=== PATIENT | female | born 1935 | race Caucasian/White ===

== ENCOUNTER 2016-12-13 12:23 | Observation (INO) | payer MEDICARE, OTHER ==
[2016-12-18] MEDS ORDERED: Ondansetron ODT 4 MG TAB PO PRN (14:42)
[2016-12-18] MEDS ORDERED: Acetaminophen 325 MG TAB PO PRN (14:42)
[2016-12-18] MEDS ORDERED: diphenhydrAMINE HCl 25 MG CAP PO PRN (14:43)
[2016-12-18 14:47] VITALS: BMI 24.4
[2016-12-18 15:08] LABS: #Basophils 0.1 thou/uL (0.0-0.2); #Eosinphils 0.1 thou/uL (0.0-0.7); #Lymphocytes 1.9 thou/uL (1.20-3.40); #Monocytes 0.9 thou/uL (0.11-0.59); #Neutrophils 6.3 thou/uL (1.40-6.50); %Basophils 0.6 % (0.0-1.0); %Eosinophils 0.7 % (0.0-10.0); %Lymphocytes 20.2 % (21.0-51.0); %Monocytes 9.9 % (0.0-10.0); Hematocrit 39.7 % (36.0-47.0); Mean Platelet Volume 7.5 fL (7.4-10.4); Red Blood Cell (RBC) Count 4.08 mill/uL (4.20-5.40); White Blood Cell (WBC) Count 9.1 thou/uL (4.8-10.8)
[2016-12-18 15:28] LABS: ALT (SGPT) 11 U/L (8-55); AST (SGOT) 16 U/L (5-34); Alkaline Phosphatase 80 U/L (40-150); Anion Gap 12 mmol/L (10-20); BUN (Urea Nitrogen) 12 mg/dL (9.8-20.1); Bilirubin, Total 0.3 mg/dL (0.2-1.2); Calc. Creatinine Clearance 65 mL/min (70-130); Calcium 8.9 mg/dL (7.8-10.44); Carbon Dioxide 22 mmol/L (23-31); Chloride 107 mmol/L (98-107); Estimated GFR-MDRD 80; Globulin 3.2 g/dL (2.4-3.5)
[2016-12-18] MEDS ORDERED: GoLYTELY 4,000 ml Bottle PO SCH (16:00)
[2016-12-18] MEDS ORDERED: NAMZARIC PO SCH (21:00)
[2016-12-18] MEDS: AcetaZOLAMIDE 250 MG TAB PO SCH (21:26)
[2016-12-19] MEDS ORDERED: GoLYTELY 4,000 ml Bottle PO SCH (05:00)
[2016-12-19] MEDS ORDERED: Levothyroxine Sodium 50 MCG TAB PO SCH (06:00)
[2016-12-19] MEDS: AcetaZOLAMIDE 250 MG TAB PO SCH (08:07)
[2016-12-19] MEDS ORDERED: Losartan Potassium 25 MG TAB PO SCH (09:00)
[2016-12-19] MEDS ORDERED: Loratadine 10 MG TAB PO SCH (09:00)
[2016-12-19] MEDS ORDERED: Fleet Enema 133 ML BOT FS SCH (10:30)
[2016-12-19] MEDS ORDERED: Propofol 200 MG/20 ML VIAL ONE (13:28)
[2016-12-19] MEDS ORDERED: Lidocaine 1% PF 5 ML VIAL ONE (13:28)
[2016-12-19 13:33] VITALS: TEMP 97.7
[2016-12-19] MEDS ORDERED: Promethazine HCl 25 MG/ML VIAL SLOW IVP PRN (14:09)
[2016-12-19] MEDS ORDERED: Promethazine HCl 25 MG/ML VIAL IM PRN (14:09)
[2016-12-19] MEDS ORDERED: Ondansetron HCl/PF 4 MG/2 ML Vial IVP PRN (14:09)
--- NOTE | 2016-12-19 15:26 | OP ---
DATE OF PROCEDURE: 12/19/2016 TITLE OF PROCEDURE: Colonoscopy with injection therapy and biopsy. PREOPERATIVE DIAGNOSES: 1. Chronic constipation. 2. Rectal bleeding 3. Anal mass noted on recent physical exam. POSTOPERATIVE DIAGNOSES: 1. Exam to cecum; adequate bowel preparation. 2. Severe of diffuse melanosis coli which somewhat limits visualization of mucosal detail. 3. Flat 1.6 cm polyp in the ascending colon, biopsied after unsuccessful attempt to remove. 4. Small internal hemorrhoids. 5. No evidence of rectal mass. 6. 2-inch firm, friable mass at the vaginal introitus extending posterior to the anal verge, biopsi ed. PROCEDURE IN DETAIL: Written informed consent was obtained. The patient was brought to the endosco py suite. Total intravenous anesthesia was administered by Dr. Antonio and associates. The patient w as placed in the left lateral decubitus position. A digital rectal exam was performed, which reveal ed a 2 cm firm exophytic friable mass at the vaginal introitus extending posteriorly to the anus. A t the conclusion of the colonoscopy, small tissue biopsies of the mass were obtained for histology. A Pentax video colonoscope was inserted through the anal canal and advanced under direct visualizat ion to the cecum. Position in the cecum was verified by identification of the ileocecal valve and t hrough transillumination. The quality of the bowel preparation was good. However, due to the endos copic findings, visualization of the mucosa for small details was somewhat limited. Endoscopic find ings showed severe diffuse melanosis coli. In the midascending colon, 1.6 cm flat polyp over a fold was identified. The polyp was elevated with submucosal injection of saline, but could still not be successfully captured and removed by snare. Hence, the attempted polypectomy was aborted and biops ies were obtained for histology. In the rectum, a retroflexed view demonstrated small internal hemo rrhoids. However, no rectal mass was seen. The anal canal appeared intact. The colon was decompre ssed as the colonoscope was removed from the patient. There were no immediate complications. She w as transferred to the recovery room for post-procedure monitoring. RECOMMENDATIONS: 1. Await pathology results. 2. Ask the patient's daughter to call me in 1 week for pathology results. 3. Continue MiraLax. 4. Obtain gynecology consultation in the next 1-2 weeks. 5. Follow up with me in [facility] in 2-3 weeks. 6. Okay to discharge home from [facility] once the patient is awake, alert, and her vitals are st able.
[2016-12-19 17:02] VITALS: BP 106/65
== END 2016-12-19 18:10 | disposition home or self-care (01) ==
LOC: T4-A 12-18 14:04 → EDSTATUS 12-19 14:03
PROVIDERS: ADMIT Internal Medicine; ATTEND Internal Medicine
PROC: 0DBK8ZX Excision of Ascending Colon, Via Natural or Artificial Opening Endoscopic, Diagnostic (ICD-10-PCS; principal; 2016-12-18)
PROC: 0DBP8ZX Excision of Rectum, Via Natural or Artificial Opening Endoscopic, Diagnostic (ICD-10-PCS; 2016-12-18)
DX: C20 Malignant neoplasm of rectum (principal); D12.2 Benign neoplasm of ascending colon; K63.89 Other specified diseases of intestine; K64.8 Other hemorrhoids; K21.9 Gastro-esophageal reflux disease without esophagitis; I10 Essential (primary) hypertension; I67.1 Cerebral aneurysm, nonruptured; F41.9 Anxiety disorder, unspecified; M19.90 Unspecified osteoarthritis, unspecified site; Z79.899 Other long term (current) drug therapy; Z90.710 Acquired absence of both cervix and uterus; Z98.2 Presence of cerebrospinal fluid drainage device; Z85.41 Personal history of malignant neoplasm of cervix uteri
CPT/HCPCS: 45380; 80053; 82378; 85025; 88305; 88341; 88342; G0378; 36415; 88304; A4216; J2001; J2704

== ENCOUNTER 2017-01-01 16:06 | Outpatient (CLI) | payer MEDICARE, OTHER ==
--- NOTE | 2017-01-01 16:42 | ULT ---
VENOUS DOPPLER ULTRASOUND OF THE RIGHT LOWER EXTREMITY: HISTORY: Pain and edema in the right lower extremity. TECHNIQUE: Buchanan scale ultrasound with color flow and spectral Doppler imaging of the deep venous system of the right lower extremity was performed. FINDINGS: There is good flow, compression, and augmentation noted in the right common femoral, femoral, deep f emoral, popliteal, posterior tibial, and greater saphenous veins. There are hyperechoic solid-appearing masses with a small amount of flow in the right groin without connection to the vascular structures measuring 4.7 x 2.3 x 3.1 cm and 1.6 x 1.3 x 1.6 cm respective ly. These are suspicious for enlarged lymph nodes. IMPRESSION: 1. No evidence of deep vein thrombosis in the right lower extremity. 2. Masses in the right groin are likely enlarged lymph nodes. Findings are discussed over the telephone with Dr. Alyssa Mckeon (covering for Dr. Lindsay) at 4:33 p.m. CODE CR POS: [facility]
== END 2017-01-01 16:07 | disposition home or self-care (01) ==
LOC: ULT 16:06
PROVIDERS: ATTEND Internal Medicine Hematology & Oncology
DX: I82.90 Acute embolism and thrombosis of unspecified vein (principal); M79.604 Pain in right leg; R60.0 Localized edema; R19.09 Other intra-abdominal and pelvic swelling, mass and lump

== ENCOUNTER 2017-01-07 14:55 | Outpatient (CLI) | payer MEDICARE, OTHER ==
--- NOTE | 2017-01-07 20:40 | PET ---
NUCLEAR MEDICINE FDG PET CT: (Positron Emission Tomography) DATE: 01/07/17 HISTORY: 81-year-old female with anal cancer. Initial staging. COMPARISON: None. TECHNIQUE: IV injection F-18 Fluorodeoxyglucose (FDG) dose: 9.8 mCi Attenuation-correction CT performed from skull base to proximal thighs. FINDINGS: SUV (standard uptake value) numbers given are maximum SUV's: There is a focus of increased FDG localization in the anus, at midline and to the left of midline, w ith SUV of 11.3, corresponding to the anal carcinoma mentioned in the history. (A few centimeters superior to this, there is a focus of increased uptake in the rectum, with SUV of 5.8. This may be of similar etiology of the diffuse and discontiguously increased uptake throughout much of the rest of the colon, including sigmoid colon and descending colon, and may not necessaril y represent a 2nd neoplastic focus. Recommend correlateion with results of sigmoidoscopy or colonosc opy.) There is a 4.5 x 2.5 cm medial right metastatic inguinal enlarged lymph node with SUV of 10.3. Slightly anterior and superior to that, there is another 1.5 x 1.3 cm metastatic right inguinal lymp h node with SUV of 3.2. There is a 3 x 2 cm enlarged right obturator internis lymph node with SUV of 12.4. No common iliac or retroperitoneal hypermetabolic lymph nodes. Multiple gallstones. Large cyst in th e left lobe of the liver. Located at the hepatic hilum (anterior to the caudate lobe of the liver and posterior to the falcifo rm ligament), there is a 1 x 1.7 cm mildly enlarged lymph node with SUV of 10.9. No liver metastasis. Moderate-large hiatal hernia with approximately 50% of stomach superior to diap hragm. No hypermetabolic activity in the thorax and no suspicious hypermetabolic activity in the nec k. IMPRESSION: 1. Anal cancer. 2. Metastatic pelvic lymph nodes: 2 right inguinal nodes and 1 right obturator internis node. 3. Small but very hypermetabolic gary hepatis lymph node at the hepatic hilum, suspicious for virginia gnant involvement. 4. Cholelithiasis. 5. Moderate - large hiatal hernia. 6. Moderately large left lobe benign hepatic cyst. MISA Felix POS: [facility]
== END 2017-01-07 14:56 | disposition home or self-care (01) ==
LOC: PET 14:55
PROVIDERS: ATTEND Internal Medicine Hematology & Oncology
DX: C21.1 Malignant neoplasm of anal canal (principal); K80.20 Calculus of gallbladder without cholecystitis without obstruction; K44.9 Diaphragmatic hernia without obstruction or gangrene
CPT/HCPCS: 78815; A9552

== ENCOUNTER 2017-02-04 15:05 | Day surgery (SDC) | payer MEDICARE, OTHER ==
[2017-01-29 17:29] VITALS: BMI 25.0
[2017-02-04] MEDS ORDERED: Ketorolac Tromethamine 30 MG/ML VIAL ONE (15:29)
[2017-02-04] MEDS ORDERED: CEFAZOLIN/Water 2 GM/20 ML SYRINGE ONE (15:29)
--- NOTE | 2017-02-04 16:35 | RAD ---
ONE VIEW CHEST: History: Status post Mediport placement. Comparison: None. FINDINGS: Portable upright chest demonstrates a portion of a left sided PULVERIZER OPERATOR shunt catheter. No Mediport cathete r. Normal cardiac silhouette. The pulmonary vessels and hilum are normal. No consolidation or mass. No pneumothorax or osseous abnormality. IMPRESSION: 1. No acute cardiopulmonary process. 2. No evidence of Mediport catheter. POS: [facility]
[2017-02-04] MEDS ORDERED: Fentanyl 100 MCG/2 ML VIAL ONE (17:57)
[2017-02-04] MEDS ORDERED: Lidocaine 1% (PF) 30 ML VIAL ONE (18:02)
[2017-02-04] MEDS ORDERED: Bupivacaine/Epinephrine 0.25% 30 ML VIAL ONE (18:02)
[2017-02-04] MEDS ORDERED: ePHEDrine/0.9% NaCl/PF SYRINGE 50 mg/10 ml ONE (18:32)
[2017-02-04] MEDS ORDERED: Lidocaine 1% PF 5 ML VIAL ONE (18:32)
[2017-02-04] MEDS ORDERED: Propofol 200 MG/20 ML VIAL ONE (18:32)
--- NOTE | 2017-02-04 20:40 | RAD ---
CHEST ONE VIEW 02/04/17 HISTORY: Mediport placement. COMPARISON: Earlier exam on the same date. FINDINGS: The cardiac silhouette is magnified by projection. The pulmonary vasculature is now engorged. Medias tinum remains midline. Tip of a right sided Mediport projects over the superior vena cava. There is no evidence of pneumothorax. Radiopaque tubing overlying the left chest and abdomen is similar in ap pearance to the previous study. IMPRESSION: Right sided Mediport is in good radiographic position. POS: [facility]
--- NOTE | 2017-02-04 23:34 | OP ---
DATE OF PROCEDURE: 02/04/2017 PREOPERATIVE DIAGNOSIS: Vulvar squamous cell cancer. POSTOPERATIVE DIAGNOSIS: Vulvar squamous cell cancer. OPERATION PERFORMED: Placement of right subclavian MediPort. SURGEON: [place] Gaitan M.D. ANESTHESIA: Total intravenous anesthesia with local using 0.25% Marcaine with epinephrine. INDICATIONS: The patient is an 81-year-old white female. 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 Chemotherapy and radiation has been recommended. She presents for port anais cement for chemotherapy administration. DESCRIPTION OF OPERATION: Informed consent was obtained. The patient was taken to the operating ro om where total intravenous anesthesia was obtained with the patient in supine position. Right upper chest was prepped with ChloraPrep and draped in sterile fashion. Local anesthetic was infiltrated and a large gauge needle was passed under the clavicle and subclavian vein on the initial pass. Adonis dewire was passed into the superior vena cava using fluoroscopic guidance. Additional local anesthe tic was infiltrated and transverse incision was created based on needle insertion site. Subcutaneou s pocket was dissected. Introducer dilator was passed over the guidewire. Guidewire was removed an d catheter was passed through the introducer, which was then removed in the usual peel-apart fashion . Catheter tip was positioned at the atrial caval junction. The catheter was trimmed to appropriat e length and secured to the locking hub of the MediPort. The port was secured to the pectoral fasci a using 2 interrupted sutures of 3-0 Prolene. The wound was closed in layers with 3-0 and 4-0 Monoc ryl. Dermabond was placed externally. The port was accessed easily. It aspirated blood and was fl ushed with heparinized saline. There were no complications. The patient tolerated the procedure we ll. Postprocedure chest x-ray documents good position of the port and catheter. She was taken to r ecovery room in stable condition.
== END 2017-02-04 19:44 | disposition home or self-care (01) ==
LOC: SDC 15:05
PROVIDERS: ATTEND Specialist
PROC: 0JH63WZ Insertion of Totally Implantable Vascular Access Device into Chest Subcutaneous Tissue and Fascia, Percutaneous Approach (ICD-10-PCS; principal; 2017-02-04)
DX: C51.9 Malignant neoplasm of vulva, unspecified (principal); C21.0 Malignant neoplasm of anus, unspecified; I10 Essential (primary) hypertension; E03.9 Hypothyroidism, unspecified; J30.2 Other seasonal allergic rhinitis; Z79.51 Long term (current) use of inhaled steroids; Z79.899 Other long term (current) drug therapy; Z90.710 Acquired absence of both cervix and uterus; Z98.890 Other specified postprocedural states; Z98.818 Other dental procedure status; Z85.41 Personal history of malignant neoplasm of cervix uteri
CPT/HCPCS: 36561; 71010; 77386; 80053; 82248; 83615; 83735; 84100; 84550; C1788; 36415; J0131; J1642; J1885; J2001; J2704; J3010

== ENCOUNTER 2017-02-06 15:48 | Outpatient (CLI) | payer MEDICARE, OTHER ==
--- NOTE | 2017-02-06 16:24 | ULT ---
RIGHT LOWER EXTREMITY VENOUS DOPPLER ULTRASOUND 02/06/17 COMPARISON: 01/01/17 HISTORY: Evaluate for deep venous thrombosis of the right lower extremity, pain and swelling/edema. TECHNIQUE: Multiplanar lopez scale sonographic imaging of the venous structures of the right lower extremity obta ined with color flow and spectral analysis. FINDINGS: The right common femoral vein, greater saphenous vein, profunda femoral vein, femoral vein, popliteal vein, and posterior tibial vein are patent. there is normal blood flow, augmentation and compression within the deep venous system of the right lower extremity with no evidence for DVT. As seen on the prior examination, there is a lobulated soft tissue hypoechoic mass in the inguinal re gion on the right measuring up to 3.2 cm, consistent with the patient's known right inguinal lymphade nopathy. IMPRESSION: 1. No sonographic evidence of deep venous thrombosis of the right lower extremity. 2. Right inguinal lymphadenopathy. POS: [facility]
== END 2017-02-06 15:49 | disposition home or self-care (01) ==
LOC: ULT 15:48
PROVIDERS: ATTEND Radiology Radiation Oncology
DX: R60.0 Localized edema (principal); R59.0 Localized enlarged lymph nodes

== ENCOUNTER 2017-02-26 17:16 | Inpatient (IN) | payer MEDICARE, OTHER ==
[2017-02-26] MEDS ORDERED: Ondansetron HCl/PF 4 MG/2 ML Vial IVP PRN (18:17)
[2017-02-26 18:28] VITALS: BMI 25.0
[2017-02-26] MEDS ORDERED: Sodium Chloride 0.9% 1,000 ML IV SCH ×2 (18:30)
[2017-02-26 19:19] LABS: ALT (SGPT) 52 U/L (8-55); AST (SGOT) 52 U/L (5-34); Alkaline Phosphatase 88 U/L (40-150); Anion Gap 16 mmol/L (10-20); BUN (Urea Nitrogen) 17 mg/dL (9.8-20.1); Bilirubin, Total 0.4 mg/dL (0.2-1.2); Calc. Creatinine Clearance 33 mL/min (70-130); Calcium 6.7 mg/dL (7.8-10.44); Carbon Dioxide 23 mmol/L (23-31); Chloride 92 mmol/L (98-107); Estimated GFR-MDRD 39; Globulin 2.8 g/dL (2.4-3.5); Magnesium 1.1 mg/dL (1.6-2.6)
[2017-02-26] MEDS ORDERED: Magnesium 2 GM/NS 0.9% 50 ML 2 GM in Premix Bag 1 BAG IVPB SCH (20:30)
[2017-02-26] MEDS: NS 0.9% w/ 20 MEQ KCL 1,000 ML IV SCH (22:27)
[2017-02-26] MEDS: Famotidine/PF 20 mg/2ml Vial SLOW IVP SCH (22:28)
[2017-02-26 22:45] LABS: Bilirubin Negative (Negative); Blood, Urine Moderate (Negative); Glucose, Urine (Dipstick) Negative (Negative); Ketone, Urine Trace mg/dL (Negative); Nitrite Negative (Negative); Protein, Urine (Dipstick) 30 mg/dL (Neg-Trace); Urobilinogen 0.2 mg/dL (0.2-1.0)
[2017-02-26 22:47] LABS: Bacteria/HPF 4+ HPF (None Seen); Hyaline Casts/LPF 0-3 HYALINE CAST LPF (0-3 Hyaline); Squamous Epithelial 0-3 HPF (0-3)
--- NOTE | 2017-02-27 05:51 | HP ---
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 The patient has had pelvic dis comfort, bleeding, and vaginal pain over these last several years off and on. She recently moved [facility]. She then presented to Dr. Newsome who discovered a large vaginal mass and suspected canc er vulvar versus anal. A biopsy was obtained, which did reveal a squamous cell carcinoma. She is pr esently followed by Dr. Flores and Dr. Lindsay. The patient has received approximately 4 weeks of rad iation treatment and approximately 3 weeks of chemo. During this treatment, the patient gets dehydra rin at times and had required hydration. But with each episode, her dehydration, according to the d miguel, appears to be getting worse and worse. Finally, over the past 24 hours, the patient has had marked diarrhea and she has had a minimal intake. The family is very concerned about her being quit e dehydrated. They have elected to hold chemo and radiation at this time. Her last chemo was one we ek ago, Friday. The dose yesterday was held. They are in the process of evaluating the future plan s. In the meantime, the patient is not really complaining of any pain. She has dementia and difficu lty hearing. PAST MEDICAL HISTORY: Includes: 1. 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 2. Early dementia. 3. Hearing loss. 4. History of cervical cancer. 5. Hypertension. 6. Hypothyroid. 7. Allergies. 8. Hearing loss. PAST SURGICAL HISTORY: Include hysterectomy 1973, wrist surgery 2005 and 2007, history of an aneurys m 1993. On 02/04/2017, Dr. Butler did place a MediPort. ALLERGIES: None. FAMILY HISTORY: Father with a stroke. Mother with congestive heart failure. She does have one daughter with breast cancer. SOCIAL HISTORY: She is . She is retired. She is a nonsmoker, nondrinker. She has 4 brothe rs, 3 sisters, 2 sons, and 2 daughters. REVIEW OF SYSTEMS: As above. PHYSICAL EXAMINATION: VITAL SIGNS: Blood pressure 129/72, pulse 76, respirations 16, pulse ox 97, temperature 97.9. GENERAL: At this time, the patient does not appear in pain. She seems more upset. She is presently having diarrhea. HEENT: Relatively clear. Mucous membranes are dry. NECK: Supple. HEART: Regular rate and rhythm. LUNGS: Clear. ABDOMEN: Soft. Bowel sounds are present. Does not appear to be in marked pain. EXTREMITIES: With 1+ edema. LABORATORY AND X-RAY FINDINGS: None. X-RAYS: None. ASSESSMENT: 1. 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 2. Early dementia. 3. Hearing loss. 4. History of cervical cancer. 5. Hypertension. 6. Hyperlipidemia. 7. Arthritis. 8. Anxiety/depression. 9. Hypothyroidism. 10. Full code. PLAN: 1. Hydration. 2. Check electrolytes, magnesium level, thyroid, urine, etc. 3. Protonix 40 IV q.d. 4. A.m. labs. 5. Consult Dr. Lindsay and Dr. Flores. 6. Discuss code status with the 2 daughters. At this time, they want the patient to remain a full c ode. 7. The patient appears to be dehydrated which is probably her main issue at this time. This is a re sult of her chemo and radiation. During the hospitalization, the main treatment would be IV hydratio n. I did talk with the 2 daughters and they need to reevaluate her code status and proceeding on wit h cancer treatment.
[2017-02-27 06:04] LABS: #Lymphocytes 0.2 thou/uL (1.20-3.40); #Monocytes 0.5 thou/uL (0.11-0.59); #Neutrophils 3.8 thou/uL (1.40-6.50); %Basophils 0.1 % (0.0-1.0); %Eosinophils 0.6 % (0.0-10.0); %Lymphocytes 4.9 % (21.0-51.0); %Monocytes 10.4 % (0.0-10.0); Hematocrit 26.5 % (36.0-47.0); Mean Platelet Volume 6.4 fL (7.4-10.4); White Blood Cell (WBC) Count 4.6 thou/uL (4.8-10.8)
[2017-02-27 06:19] LABS: Anion Gap 13 mmol/L (10-20); BUN (Urea Nitrogen) 14 mg/dL (9.8-20.1); Calc. Creatinine Clearance 44 mL/min (70-130); Calcium 6.6 mg/dL (7.8-10.44); Carbon Dioxide 23 mmol/L (23-31); Chloride 102 mmol/L (98-107); Estimated GFR-MDRD 54
[2017-02-27] MEDS: NS 0.9% w/ 20 MEQ KCL 1,000 ML IV SCH ×3 (06:39→18:28)
[2017-02-27] MEDS ORDERED: Potassium Chloride 30 MEQ in Sodium Chloride 0.9% 250 ML 250 ML IVPB SCH (06:45)
[2017-02-27 08:36] LABS: Iron 36 ug/dL (50-170)
--- NOTE | 2017-02-27 08:39 | PRG ---
DATE OF SERVICE: 02/27/2017 SUBJECTIVE: The patient is lying in bed with improved mentation. Last night she was apparently very altered and resistant to care. This morning she denies pain and is a very willing to accept care. Per nurse, the vulvar area is erythematous and raw. PHYSICAL EXAMINATION: VITAL SIGNS: Temperature 98.3, pulse 88, respirations 16, oxygen saturation 95% on room air, blood p ressure 116/60. GENERAL: Alert, oriented to name and place. She could not remember my name as her primary doctor. HEENT: Normocephalic. Pupils equally round and reactive to light. Extraocular muscles intact. HEART: Regular rate and rhythm. LUNGS: Clear to auscultation bilaterally, no wheezes. ABDOMEN: Soft, mild tenderness to palpation diffusely. EXTREMITIES: Lower extremities had trace edema bilaterally, no cyanosis. LABORATORY DATA: White blood cell count 4.6, hemoglobin 8.9, hematocrit 26.5, MCV 91.5, platelets 20 5. Sodium 135, potassium 2.9, chloride 102, carbon dioxide 23, BUN 14, creatinine 0.98, glucose 77, calc ium 6.6. Vitamin B12 1127, elevated, folate 12.70 normal range. TSH 3.22, normal range. ASSESSMENT AND PLAN: 1. Volume depletion. Continue IV fluids, hydration appears to be improved. 2. Hypokalemia. Continue potassium IV replacement. This is improved from last night. 3. Normocytic anemia. B12 and folate are normal. We will obtain iron studies. 4. Vulvar squamous cell carcinoma, status post chemotherapy and radiation. We will consult Dr. Bob falcon. It appears she was sent [facility] yesterday due to severe dehydration. 5. Hypoalbuminemia, likely secondary to low appetite and not eating. We will consult Dietary for re commendations. 6. Essential hypertension. The patient has normal blood pressure, not requiring her home medication s currently. 7. Acquired hypothyroidism. We will continue her home dose of levothyroxine at 50 mcg daily.
[2017-02-27] MEDS: Famotidine/PF 20 mg/2ml Vial SLOW IVP SCH ×2 (09:31→20:33)
[2017-02-27] MEDS: Enoxaparin Sodium 40 MG/0.4 ML SYRINGE SC SCH (09:31)
[2017-02-27] MEDS ORDERED: Loperamide HCl 2 MG CAP PO PRN (17:31)
[2017-02-27] MEDS: Loperamide HCl 2 MG CAP PO PRN (18:28)
--- NOTE | 2017-02-27 20:49 | CON ---
DATE OF CONSULTATION: 02/27/2017 REASON FOR CONSULTATION: Squamous cell carcinoma. HISTORY OF PRESENT ILLNESS: Ms. Arita is an 81-year-old female well known to our clinic, who is unde rgoing treatment with weekly cisplatin and daily radiation for stage III squamous cell carcinoma of t he vulva involving the anus. She also has a history of early dementia and is extremely hard of heari ng. She has been struggling with treatment over the past few weeks with poor appetite, weight loss, dehydration, and electrolyte imbalance. She was seen at our facility on Friday and the decision was made to hold cisplatin. She did continue radiation. Dr. Flores saw the patient yesterday and felt t hat she was dehydrated, so she was sent to this facility for admission. She was started on IV fluids . She has been hypokalemic for many weeks despite supplementation. She has been given IV potassium here. PAST MEDICAL HISTORY: 1. Squamous cell carcinoma of the vulva and anus. 2. History of cervical cancer. 3. Hypertension. 4. High cholesterol. 5. Arthritis. 6. Hearing loss. 7. Dementia. PAST SURGICAL HISTORY: 1. Hysterectomy. 2. Wrist surgery. 3. History of aneurysm. 4. MediPort. ALLERGIES: No known drug allergies. HOME MEDICATIONS: 1. Acetazolamide 250 mg b.i.d. 2. Amlodipine 5 mg daily. 3. Iron daily. 4. Levothyroxine 50 mcg daily. 5. Losartan 100 mg daily. 6. Magnesium 250 mg daily. 7. Megace daily. 8. daily. 9. Prilosec daily. 10. Potassium chloride 20 mEq daily. 11. Sertraline 50 mg daily. FAMILY HISTORY: Daughter had breast cancer. SOCIAL HISTORY: , has 3 children, lives with her daughter here. No alcohol, tobacco or illi cit drug use. REVIEW OF SYSTEMS: Positive for fatigue, weakness, joint pain, and rectal discomfort. PHYSICAL EXAMINATION: VITAL SIGNS: Temperature is 98.8, pulse is 82, respiratory rate 20, BP 119/60. She is 97% on room a ir. GENERAL: Chronically ill-appearing female, in no acute distress. HEENT: Normocephalic, atraumatic. Pupils are equal and reactive to light. NECK: Supple. CARDIOVASCULAR: Regular rate and rhythm. LUNGS: Clear. ABDOMEN: Soft, nontender, bowel sounds are positive. EXTREMITIES: No clubbing, cyanosis, or edema. SKIN: She has a partial thickness wound to her perineum. NEUROLOGIC: The patient is hard of hearing and forgetful. PERTINENT LABORATORY AND X-RAYS: Current WBCs are 4.6, hemoglobin 8.9, hematocrit 26.5, platelet cou nt 205,000, 84% neutrophils, 5% lymphocytes. Sodium is 135, potassium 2.9, chloride is 102, CO2 is 2 3, BUN is 14, creatinine 0.98, calcium is 6.6, magnesium 1.1, total bilirubin is 0.4, AST is 52, ALT is 52, alkaline phosphatase is 88, serum total protein 6, albumin 3.2, globulin 2.8. IMPRESSION: 1. 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 2. Fluid depletion. 3. Hypokalemia. 4. Dementia. 5. Hearing loss. DISCUSSION: The patient's daughters were in the room during our discussion. The decision has been m blanche to hold chemoradiation to allow the patient to recover. Plan to give a treatment break until [place] pal should she not improve by that time, she will be placed on hospice. Otherwise, we will recommen d palliative care and Home Health for wound care. She does feel better today. I would continue IV f luids and replete her electrolytes and once they are improved to send the patient home. Thank you for the consult.
[2017-02-27] MEDS ORDERED: Donepezil HCl 10 MG TAB PO SCH (21:00)
[2017-02-28] MEDS: NS 0.9% w/ 20 MEQ KCL 1,000 ML IV SCH (05:46)
[2017-02-28] MEDS ORDERED: Levothyroxine Sodium 50 MCG TAB PO SCH (06:00)
--- NOTE | 2017-02-28 07:56 | PRG ---
DATE OF SERVICE: 02/28/2017 SUBJECTIVE: The patient is sleeping in bed comfortably. Easily awoken. She denies pain this mornin g and has no complaints at this time. PHYSICAL EXAMINATION: VITAL SIGNS: Temperature 98, pulse 78, blood pressure 140/70, respirations 20, oxygen saturation 96% on room air. GENERAL: Alert and oriented to name and place, no acute distress. HEENT: Normocephalic. Pupils equally round and reactive to light. Extraocular muscles intact. HEART: Regular rate and rhythm. LUNGS: Clear to auscultation bilaterally, no wheezes. ABDOMEN: Soft, nontender, nondistended. EXTREMITIES: Trace edema bilaterally in the lower extremities. No cyanosis. LABORATORY DATA: No new labs. ASSESSMENT AND PLAN: 1. Volume depletion, much improved. 2. Hypokalemia. We will order a basic metabolic panel this morning to evaluate potassium. 3. Iron deficiency anemia. We will start iron supplement. 4. Vulvar squamous cell carcinoma, status post chemotherapy and radiation. 5. Hypoalbuminemia. Dietary has evaluated the patient, will allow a regular diet with supplementati on. 6. Essential hypertension. Blood pressure has been stable. 7. Acquired hypothyroidism. Continue levothyroxine. DISPOSITION: Family discussions with Oncology and Radiation Oncology have led to a decision to stop chemoradiation until March. Palliative Care consult has been placed and should be able to see her today. The family has been leaning towards a DNR order, but wanted to discuss with Palliative Care angelina alatorre
[2017-02-28 08:26] LABS: Anion Gap 10 mmol/L (10-20); BUN (Urea Nitrogen) 10 mg/dL (9.8-20.1); Calc. Creatinine Clearance 52 mL/min (70-130); Calcium 6.9 mg/dL (7.8-10.44); Carbon Dioxide 22 mmol/L (23-31); Chloride 109 mmol/L (98-107); Estimated GFR-MDRD 66
[2017-02-28] MEDS: Ferrous Sulfate 325 MG TAB PO SCH ×2 (09:32→17:22)
[2017-02-28] MEDS: Enoxaparin Sodium 40 MG/0.4 ML SYRINGE SC SCH (09:33)
[2017-02-28] MEDS: Famotidine/PF 20 mg/2ml Vial SLOW IVP SCH (09:33)
[2017-02-28] MEDS ORDERED: Potassium Chloride 40 MEQ in Premix Bag 1 BAG IVPB SCH (10:00)
[2017-02-28] MEDS: Acetaminophen 325 MG TAB PO PRN ×2 (13:22→17:21)
--- NOTE | 2017-02-28 15:57 | RAD ---
RIGHT SHOULDER TWO VIEWS: 02/29/16 HISTORY: 81-year-old female with right shoulder pain and numbness in arm. Right central line injection port are noted. There is bone demineralization. Mild degenerative change s of the AC joint and glenohumeral joints. IMPRESSION: Degenerative changes right shoulder. No acute fracture or dislocation. POS: [facility]
[2017-02-28] MEDS: Loperamide HCl 2 MG CAP PO PRN (16:13)
[2017-02-28 17:24] VITALS: BP 123/67; TEMP 97.9
--- NOTE | 2017-02-28 20:58 | DIS ---
DATE OF ADMISSION: 02/26/2017 DATE OF DISCHARGE: 02/28/2017 ADMISSION DIAGNOSES: 1. Squamous cell carcinoma of vulva. 2. Early dementia. 3. Dehydration. 4. Hypertension. 5. Hyperlipidemia. DISCHARGE DIAGNOSES: 1. Volume depletion, improved. 2. Hypokalemia, improved. 3. Iron deficiency anemia. 4. Squamous cell carcinoma of the vulva. 5. Hypoalbuminemia. 6. Essential hypertension. CONSULTS: Oncology. PROCEDURES: None. HOSPITAL COURSE: This is an 81-year-old female with medical history of squamous cell of th e vulva recently diagnosed, status post chemotherapy and radiation, hypertension, and hypothyroidism who presented to the emergency room with dehydration. She was found to be volume depleted with hypok alemia. She was given IV fluids with potassium supplement. Fluid volume and potassium improved sign ificantly on this hospital stay. Due to radiation, there is significant wound of the vulva in the anal area. Wound Care evaluated the area and has begun treatments for that. For hypertension, blood pressure remained normal range. For hypothyroidism, she continued her Synthr oid in the hospital. After evaluation by Oncology and Palliative Care Team. The decision was made to initiate DNR order a nd discharge with hospice care. She will be followed by [facility]. DISPOSITION: Guarded. DISCHARGE INSTRUCTIONS: 1. Discharge: To home with hospice care. 2. Activity: Ad jaxson. 3. Diet: Regular diet. 4. Followup will be followed by hospice in the outpatient setting.
== END 2017-02-28 18:18 | disposition hospice, home (50) | DRG 641 ==
LOC: ONC 17:16
PROVIDERS: ADMIT Family Medicine; ATTEND Family Medicine
DX: E86.0 Dehydration (principal); E86.1 Hypovolemia; C78.5 Secondary malignant neoplasm of large intestine and rectum; E88.09 Other disorders of plasma-protein metabolism, not elsewhere classified; T66.XXXA Radiation sickness, unspecified, initial encounter; F03.90 Unspecified dementia, unspecified severity, without behavioral disturbance, psychotic disturbance, mood disturbance, and anxiety; C51.9 Malignant neoplasm of vulva, unspecified; I10 Essential (primary) hypertension; Z92.21 Personal history of antineoplastic chemotherapy; Z92.3 Personal history of irradiation; Z85.41 Personal history of malignant neoplasm of cervix uteri; E03.9 Hypothyroidism, unspecified; H91.90 Unspecified hearing loss, unspecified ear; Z95.828 Presence of other vascular implants and grafts; M19.90 Unspecified osteoarthritis, unspecified site; F41.9 Anxiety disorder, unspecified; F32.9 Major depressive disorder, single episode, unspecified; E87.6 Hypokalemia; D50.9 Iron deficiency anemia, unspecified; Z51.5 Encounter for palliative care; Z66 Do not resuscitate; T45.1X5A Adverse effect of antineoplastic and immunosuppressive drugs, initial encounter; S31.40XA Unspecified open wound of vagina and vulva, initial encounter; S31.839A Unspecified open wound of anus, initial encounter
CPT/HCPCS: 36415; 77300; 77307; 77338; 77386; 80048; 80053; 81001; 82248; 82607; 82728; 82746; 83540; 83550; 83615; 83735; 84100; 84425; 84443; 84550; 85025; A4216; J1642; J1650; J3475; J3480; J7050; S0028

== ENCOUNTER 2017-06-19 11:53 | Day surgery (SDC) | payer MEDICARE, OTHER ==
[2017-06-18 11:36] VITALS: BMI 24.8
[2017-06-19] MEDS ORDERED: Lidocaine 1% PF 5 ML VIAL ONE (14:11)
[2017-06-19] MEDS ORDERED: PROPOFOL 200 MG/20 ML VIAL ONE (14:11)
--- NOTE | 2017-06-19 20:10 | OP ---
DATE OF PROCEDURE: 06/19/2017 PROCEDURE: Esophagogastroduodenoscopy with biopsy. PRE-PROCEDURE DIAGNOSES: 1. Persistent right upper quadrant abdominal pain. 2. A 13-pound weight loss in the last 6 months. 3. Anal cancer diagnosed in November 2016, status post chemoradiation. POST-PROCEDURE DIAGNOSES: 1. Examination to second portion of duodenum. 2. Large 10 cm hiatal hernia. 3. No gastric or duodenal ulcer. 4. No evidence of gastric outlet obstruction. 5. Normal-appearing duodenum, biopsied for histology. PROCEDURE IN DETAIL: Written informed consent was obtained. The patient was brought to the endoscopy suite. Total intravenous anesthesia was provided by Mr. Gerardo Ramirez CRNA. The patient was placed in the left lateral decubitus position. A bite block was inserted into the mouth. A Pentax video diagnostic gastroscope was introduced into the oral cavity and the esophagus was carefully intubated. The endoscope was advanced under direct visualization to the second portion of the duodenum. Endoscopic findings revealed a large 10 cm hiatal hernia extending from 29 cm to 39 cm from the incisors. The esophagus appeared grossly normal without evidence of acute erosion or ulcer. The hiatal hernia was visible, both on forward viewing and retroflexed view. The motility of the stomach appeared grossly normal. The pyloric channel was patent and easily traversed. There was no evidence of gastric or duodenal ulcer. The duodenum appeared intact, but biopsies were obtained for histology. Two small benign appearing sessile polyps were identified in the hiatal hernia and they were not biopsied. The appearance was consistent with benign fundic polyps. The stomach was decompressed as the endoscope was removed from the patient. She was transferred to the day stay surgery area for post-procedure monitoring. There were no immediate complications. RECOMMENDATIONS: 1. Await biopsy results. 2. Ask the patient's daughter, Kiesha, to contact me in 1 week for pathology results. 3. Eat smaller but more frequent meals throughout the day. 4. Discontinue omeprazole. 5. Trial of Protonix 40 mg daily for the next 6 weeks. 6. Follow up in my office in 3-4 weeks. DRAKE
== END 2017-06-19 16:25 | disposition home or self-care (01) ==
LOC: SDC 11:53
PROVIDERS: ATTEND Internal Medicine Gastroenterology
PROC: 0DB98ZX Excision of Duodenum, Via Natural or Artificial Opening Endoscopic, Diagnostic (ICD-10-PCS; principal; 2017-06-19)
DX: K31.7 Polyp of stomach and duodenum (principal); K44.9 Diaphragmatic hernia without obstruction or gangrene; R10.11 Right upper quadrant pain; R63.4 Abnormal weight loss; Z92.21 Personal history of antineoplastic chemotherapy; Z85.048 Personal history of other malignant neoplasm of rectum, rectosigmoid junction, and anus; Z79.899 Other long term (current) drug therapy
CPT/HCPCS: 88305; 88312; 88313; J2001; J2704

== ENCOUNTER 2017-07-01 09:35 | Emergency (ER) | payer MEDICARE, OTHER ==
[~2017-07-01 09:35] MED LIST: ISOVUE-370 76%-LOCM 1 ML ONE
[2017-07-01 10:22] LABS: #Lymphocytes 0.7 thou/uL (1.20-3.40); #Monocytes 1.1 thou/uL (0.11-0.59); #Neutrophils 7.3 thou/uL (1.40-6.50); %Basophils 0.2 % (0.0-1.0); %Eosinophils 0.4 % (0.0-10.0); %Monocytes 11.7 % (0.0-10.0); %Neutrophils 79.7 % (42.0-75.0); Hemoglobin 11.3 g/dL (12.0-16.0); Mean Corpuscular HGB CONC 32.9 g/dL (32.0-36.0); Mean Corpuscular Hemoglobin 31.6 pg (27.0-31.0); Mean Corpuscular Volume 95.8 fl (81.0-99.0); Mean Platelet Volume 7.9 fL (7.4-10.4); Platelet Count 205 thou/uL (130-400); RBC Distribution Width 12.8 % (11.5-14.5); Red Blood Cell (RBC) Count 3.58 mill/uL (4.20-5.40); White Blood Cell (WBC) Count 9.1 thou/uL (4.8-10.8)
[2017-07-01 10:26] LABS: Bilirubin Negative (Negative); Blood, Urine Negative (Negative); Clarity CLOUDY (Clear); Glucose, Urine (Dipstick) Negative (Negative); Leukocyte Small (Negative); Nitrite Positive (Negative); Protein, Urine (Dipstick) 30 mg/dL (Neg-Trace); Specific Gravity, Urine 1.017 (1.002-1.036); pH, Urine 7.5 (5.0-9.0)
[2017-07-01 10:29] LABS: Bacteria/HPF 4+ HPF (None Seen); Hyaline Casts/LPF 0-3 HYALINE CAST LPF (0-3 Hyaline); Pathc Cast-AUWi Flag 0.58 (0-2.49); RBC/HPF 0-3 HPF (0-3); Squamous Epithelial 0-3 HPF (0-3); WBC/HPF 21-50 HPF (0-3)
[2017-07-01 10:39] LABS: ALT (SGPT) 19 U/L (8-55); AST (SGOT) 64 U/L (5-34); Albumin 3.2 g/dL (3.4-4.8); Alkaline Phosphatase 565 U/L (40-150); Anion Gap 17 mmol/L (10-20); BUN (Urea Nitrogen) 16 mg/dL (9.8-20.1); Bilirubin, Total 0.5 mg/dL (0.2-1.2); Calc. Creatinine Clearance 0 mL/min (70-130); Calcium 7.5 mg/dL (7.8-10.44); Carbon Dioxide 22 mmol/L (23-31); Chloride 103 mmol/L (98-107); Estimated GFR-MDRD 65; Globulin 3.3 g/dL (2.4-3.5); Glucose 92 mg/dL (83-110); Lipase 70 U/L (8-78); Potassium 4.3 mmol/L (3.5-5.1); Protein, Total 6.5 g/dL (6.0-8.3); Sodium 138 mmol/L (136-145)
[2017-07-01 10:44] LABS: CKMB 0.5 ng/mL (0-6.6); Troponin I Less than 0.010 ng/mL (< 0.028)
[2017-07-01] MEDS ORDERED: Fentanyl 100 MCG/2 ML VIAL ONE (11:02)
--- NOTE | 2017-07-01 11:06 | RAD ---
SINGLE VIEW CHEST: HISTORY: Right upper quadrant abdominal pain. COMPARISON: None. FINDINGS: A single view of the chest shows a normal sized cardiomediastinal silhouette. A catheter projecting over the left chest may represent a [employer] shunt. There is no evidence of consolidation, mass, or pleura l effusion. IMPRESSION: No evidence of acute cardiopulmonary disease. POS: [facility]
--- NOTE | 2017-07-01 11:45 | ULT ---
RIGHT UPPER QUADRANT ULTRASOUND: HISTORY: Abdominal pain, dementia patient. Unable to hold still or hold breath. FINDINGS: Exam was limited due to patient's inability to cooperate. There is a 4.9 x 5.5 x 4.7 cm cyst in the left lobe of the liver. In the right lobe of the liver, th ere is a 3.4 x 4.7 x 4.1 cm hyperechoic mass. There are shadowing calculi in the gallbladder with gallbladder wall measuring 6 mm in thickness. No pericholecystic fluid is seen. There is echogenic sludge in the gallbladder. The common duct measu res 6 mm in diameter. The pancreas is not well visualized. The right kidney is unremarkable. No fr ee fluid is seen in the Morison's pouch. IMPRESSION: 1. Hepatic cyst. 2. Hyperechoic mass in the liver, could represent hemangioma. A Technetium 99m RBC scan is recommen ded. 3. Cholelithiasis with gallbladder wall thickening. POS: [facility]
--- NOTE | 2017-07-01 11:59 | CT ---
CT ABDOMEN AND PELVIS WITH CONTRAST: COMPARISON: Gallbladder ultrasound 07/01/17. HISTORY: Right upper quadrant abdominal pain. TECHNIQUE: Multiple contiguous axial images were obtained in a CT of the abdomen and pelvis with contrast. Trever nal reformats were performed. FINDINGS: A ventriculostomy catheter is seen in the left upper quadrant of the abdomen. There is a large cyst in the left lobe f the liver measuring 2.4 cm in size. There are scattered poorly circumscribed mass es in the liver measuring up to 6.2 cm in size which are concerning for metastatic disease to the [place] er. Multiple gallstones are seen in the gallbladder. No biliary dilatation is seen. There is a subcentimeter hypodensity in the left kidney which is too small to definitely characterize but likely represents a cyst. The right kidney, adrenal glands, spleen, and pancreas are unremarkab le. There is a trace amount of free fluid in the pelvis. The patient is status post hysterectomy. Scatt ered diverticula are seen in the colon. The small bowel is normal in caliber. No abdominal or pelvic lymphadenopathy is seen. Mild degenerative changes are seen in the spine. No suspicious osseous lesions are identified. The patient has a moderate to large hiatal hernia and th e visualized inferior thorax is otherwise unremarkable. Abdominal wall soft tissues are unremarkable . IMPRESSION: 1. There are multiple masses in the liver concerning for hepatic metastatic disease. The source for these potential metastases is uncertain. 2. Diverticulosis. 3. Hiatal hernia. 4. Likely small left renal cyst. POS: [facility]
== END 2017-07-01 12:40 | disposition home or self-care (01) ==
LOC: ERS 09:35
DX: N12 Tubulo-interstitial nephritis, not specified as acute or chronic (principal); E03.9 Hypothyroidism, unspecified; E78.5 Hyperlipidemia, unspecified; I10 Essential (primary) hypertension; R16.0 Hepatomegaly, not elsewhere classified; F41.9 Anxiety disorder, unspecified; Z79.891 Long term (current) use of opiate analgesic; Z79.899 Other long term (current) drug therapy
CPT/HCPCS: 51701; 71045; 74177; 76705; 80053; 81003; 81015; 82553; 83690; 84484; 85025; 94760; 96374; 96375; A4353; J0696; J3010